=== PATIENT | male | born 1935 | race Caucasian/White ===

== ENCOUNTER 2021-12-23 14:48 | Observation (INO) | payer MEDICARE, BC ==
[2021-12-23 15:46] LABS: #Eosinphils 0.2 thou/uL (0.0-0.7); #Lymphocytes 1.5 thou/uL (1.20-3.40); #Monocytes 0.4 thou/uL (0.11-0.59); #Neutrophils 5.8 thou/uL (1.40-6.50); %Basophils 0.6 % (0.0-1.0); %Eosinophils 2.8 % (0.0-10.0); %Lymphocytes 19.1 % (21.0-51.0); %Monocytes 4.8 % (0.0-10.0); %Neutrophils 72.7 % (42.0-75.0); Hemoglobin 16.3 g/dL (14.0-18.0); Mean Corpuscular Hemoglobin 31.4 pg (27.0-31.0); Mean Corpuscular Volume 92.4 fL (78.0-98.0); Mean Platelet Volume 7.1 fL (7.4-10.4); Platelet Count 265 thou/uL (130-400); RBC Distribution Width 11.9 % (11.5-14.5); Red Blood Cell (RBC) Count 5.19 mill/uL (4.70-6.10); White Blood Cell (WBC) Count 7.9 thou/uL (4.8-10.8)
[2021-12-23 16:06] LABS: ALT (SGPT) 18 U/L (8-55); AST (SGOT) 17 U/L (5-34); Alkaline Phosphatase 101 U/L (40-110); Anion Gap 14 mmol/L (10-20); BUN (Urea Nitrogen) 14 mg/dL (8.4-25.7); Bilirubin, Total 0.8 mg/dL (0.2-1.2); Calc. Creatinine Clearance 0 mL/min (70-130); Calcium 9.7 mg/dL (7.8-10.44); Carbon Dioxide 30 mmol/L (23-31); Chloride 97 mmol/L (98-107); Globulin 3.2 g/dL (2.4-3.5); Glucose 367 mg/dL (83-110); Potassium 3.5 mmol/L (3.5-5.1); Protein, Total 7.2 g/dL (5.8-8.1); Sodium 137 mmol/L (136-145)
[2021-12-23] MEDS ORDERED: Aspirin Chewable 81 MG TAB ONE (16:38)
[2021-12-23] MEDS ORDERED: Nitroglycerin 2% Ointment 1 INCH/1 GM Packet ONE (16:38)
[2021-12-23 17:48] LABS: SARS-CoV-2 NAA Rapid Test Not Detected (NotDetected)
[2021-12-23] MEDS ORDERED: Ondansetron ODT 4 MG TAB PO PRN (18:09)
[2021-12-23] MEDS ORDERED: Acetaminophen 325 MG TAB PO PRN (18:09)
[2021-12-23] MEDS ORDERED: Nitroglycerin 0.4 MG TAB (25 Tab Bottle) SL PRN (18:11)
[2021-12-23] MEDS ORDERED: hydrALAZINE 20 MG/ML VIAL SLOW IVP PRN (18:14)
[2021-12-23] MEDS ORDERED: Electrolyte Replacement Protocol 1 EACH FS SCH (18:15)
[2021-12-23] MEDS ORDERED: Enoxaparin Sodium 40 MG/0.4 ML SYRINGE SC SCH (19:00)
[2021-12-23] MEDS ORDERED: Atorvastatin Calcium 40 MG TAB PO SCH (21:00)
[2021-12-23 21:05] VITALS: BMI 29.4
[2021-12-23] MEDS: Nitroglycerin 2% Ointment 1 INCH/1 GM Packet TOP SCH (22:49)
[2021-12-24 04:50] LABS: Hemoglobin A1c 11.5 % (4.0-6.0)
[2021-12-24 05:01] LABS: Cardiac Risk 3.7 (Less than 4.5); Cholesterol 123 mg/dl (< 200 Desired); HDL Cholesterol 33 mg/dL (>60 Neg Risk); LDL Cholesterol, Calculated 71 mg/dL; Triglycerides 93 mg/dL (Less than 150)
[2021-12-24] MEDS: Nitroglycerin 2% Ointment 1 INCH/1 GM Packet TOP SCH (05:09)
[2021-12-24] MEDS ORDERED: Magnesium 2 GM/50 ML(in water) 2 GM in Premix Bag 1 BAG IVPB SCH (05:30)
[2021-12-24] MEDS ORDERED: Dextrose 5% in Water 1,000 ML IV PRN (08:33)
[2021-12-24] MEDS ORDERED: Dextrose 50% Abboject 50 ML SYRINGE SLOW IVP PRN (08:33)
[2021-12-24] MEDS ORDERED: Insulin Regular 300 UNITS/3 ML VIAL SC PRN ×2 (08:33)
[2021-12-24] MEDS ORDERED: Enoxaparin Sodium 80 MG/0.8 ML SYRINGE SC SCH (09:00)
[2021-12-24] MEDS ORDERED: Enoxaparin Sodium 40 MG/0.4 ML SYRINGE SC SCH (09:00)
[2021-12-24] MEDS ORDERED: Lantus 1000 UNITS/10 ML VIAL SC SCH ×2 (09:00→21:00)
[2021-12-24] MEDS ORDERED: [UNRECOGNIZED DRUG - OTHER] PO SCH (09:00)
[2021-12-24] MEDS ORDERED: Valsartan 80 MG TAB PO SCH ×2 (09:00→21:00)
[2021-12-24] MEDS ORDERED: Hydrochlorothiazide 25 MG TAB PO SCH (09:00)
[2021-12-24] MEDS ORDERED: HYDROCHLOROTHIAZIDE PO SCH ×2 (09:00)
[2021-12-24] MEDS ORDERED: VALSARTAN PO SCH ×2 (09:00)
[2021-12-24] MEDS ORDERED: Aspirin Chewable 81 MG TAB PO SCH (09:00)
[2021-12-24] MEDS ORDERED: Amlodipine 5 MG TAB PO SCH ×3 (09:00→10:00)
[2021-12-24] MEDS ORDERED: Enoxaparin Sodium 100 MG/ML SYRINGE SC SCH (09:00)
[2021-12-24] MEDS ORDERED: Montelukast Sodium 10 mg Tablet PO SCH (09:00)
[2021-12-24] MEDS ORDERED: Regadenoson 0.4 MG/5 ML SYRINGE ONE (09:32)
[2021-12-24 15:58] VITALS: BP 133/71; TEMP 97.7
[2021-12-25] MEDS ORDERED: Amlodipine 5 MG TAB PO SCH (09:00)
== END 2021-12-24 16:36 | disposition home or self-care (01) ==
LOC: ERS 14:48 → 2SW 17:23
PROVIDERS: ADMIT Internal Medicine; ATTEND Physician Assistant
DX: R07.89 Other chest pain (principal); R06.09 Other forms of dyspnea; R10.13 Epigastric pain; I10 Essential (primary) hypertension; E78.5 Hyperlipidemia, unspecified; I48.0 Paroxysmal atrial fibrillation; I45.10 Unspecified right bundle-branch block; E11.65 Type 2 diabetes mellitus with hyperglycemia; Z79.01 Long term (current) use of anticoagulants; Z79.899 Other long term (current) drug therapy; Z88.5 Allergy status to narcotic agent; Z95.0 Presence of cardiac pacemaker; Z20.822 Contact with and (suspected) exposure to COVID-19
CPT/HCPCS: 71045; 78452; 80053; 80061; 82962; 83036; 83690; 83735; 84484 ×2; 85025; 93005; 93017; 94760; 96365; 99285; A9500; G0378 ×3; U0002; 36415; 36416; J1650; J1815; J2785; J3475

== ENCOUNTER 2023-02-02 08:44 | Inpatient (IN) | payer BC, MEDICARE ==
[2023-02-02 09:35] LABS: #Eosinphils 0.1 thou/uL (0.0-0.7); #Lymphocytes 0.7 thou/uL (1.20-3.40); #Monocytes 0.5 thou/uL (0.11-0.59); #Neutrophils 8.5 thou/uL (1.40-6.50); %Basophils 0.3 % (0.0-1.0); %Eosinophils 1.1 % (0.0-10.0); %Lymphocytes 7.3 % (21.0-51.0); %Neutrophils 86.2 % (42.0-75.0); Hemoglobin 11.3 g/dL (14.0-18.0); Mean Corpuscular HGB CONC 32.8 g/dL (32.0-36.0); Mean Corpuscular Hemoglobin 30.3 pg (27.0-31.0); Mean Corpuscular Volume 92.3 fl (78.0-98.0); Mean Platelet Volume 5.6 fL (7.4-10.4); Platelet Count 529 10x3/uL (130-400); RBC Distribution Width 13.1 % (11.5-14.5); Red Blood Cell (RBC) Count 3.72 mill/uL (4.70-6.10); White Blood Cell (WBC) Count 9.8 10x3/uL (4.8-10.8)
[2023-02-02 09:45] LABS: INR-International Normal Ratio 1.3; Prothrombin Time 16.8 sec (12.0-14.7)
[2023-02-02 09:46] LABS: PTT 37.7 sec (22.9-36.1)
[2023-02-02 09:55] LABS: ALT (SGPT) 12 U/L (8-55); AST (SGOT) 11 U/L (5-34); Albumin 3.3 g/dL (3.4-4.8); Alkaline Phosphatase 68 U/L (40-110); Anion Gap 11 mmol/L (10-20); BUN (Urea Nitrogen) 11 mg/dL (8.4-25.7); Bilirubin, Total 1.1 mg/dL (0.2-1.2); Calc. Creatinine Clearance 0 mL/min (70-130); Calcium 8.7 mg/dL (7.8-10.44); Carbon Dioxide 30 mmol/L (23-31); Chloride 95 mmol/L (98-107); Estimated GFR 87; Glucose 144 mg/dL (83-110); Potassium 3.6 mmol/L (3.5-5.1); Protein, Total 6.3 g/dL (5.8-8.1); Sodium 132 mmol/L (136-145)
[2023-02-02 10:15] LABS: Bilirubin Negative (Negative); Blood, Urine Negative (Negative); Clarity Clear (Clear); Glucose, Urine (Dipstick) 30 mg/dL (Negative); Ketone, Urine Trace mg/dL (Negative); Leukocyte Negative Leu/uL (Negative); Nitrite Negative (Negative); Protein, Urine (Dipstick) Negative (Neg-Trace); Specific Gravity, Urine 1.019 (1.002-1.036); pH, Urine 5.5 (5.0-9.0)
[2023-02-02] MEDS ORDERED: Iopamidol-370 76% 500 ML MDV (1 ML CHARGE) ONE (12:37)
[2023-02-02] MEDS ORDERED: cefTRIAXone (ROCEPHIN) 2 GM VIAL ONE (13:01)
[2023-02-02] MEDS ORDERED: metroNIDAZOLE 500 MG/100 ML BAG ONE (13:01)
[2023-02-02] MEDS ORDERED: Ondansetron PF 4 MG/2 ML Vial IVP PRN (13:47)
[2023-02-02] MEDS ORDERED: Senokot S 8.6-50 MG TAB PO PRN (13:47)
[2023-02-02] MEDS ORDERED: Acetaminophen 325 MG TAB PO PRN (13:47)
[2023-02-02] MEDS ORDERED: Calcium Carbonate 500 MG ChewTAB PO PRN (13:47)
[2023-02-02] MEDS ORDERED: Dextrose 50% Abboject 50 ML SYRINGE SLOW IVP PRN (13:51)
[2023-02-02] MEDS ORDERED: Dextrose 5% in Water 1,000 ML IV PRN (13:51)
[2023-02-02] MEDS ORDERED: HumaLOG 300 UNITS/3 ML VIAL SC PRN ×2 (13:51)
[2023-02-02] MEDS ORDERED: Pantoprazole 40 MG VIAL IVP SCH (14:00)
[2023-02-02] MEDS ORDERED: Piperacillin/Tazobactam 3.375 GM in Sodium Chloride 0.9% 100 ML IVPB SCH (15:00)
[2023-02-02 16:35] LABS: Troponin I Less than 0.010 ng/mL (< 0.028)
[2023-02-02] MEDS: HYDROcodone/Acetaminophen 5/325 mg Tablet PO PRN ×2 (16:43→21:00)
[2023-02-02] MEDS: Sodium Chloride 0.9% 1,000 ML IV SCH (16:46)
[2023-02-02 17:05] VITALS: BMI 27.6
[2023-02-02] MEDS: Pantoprazole 40 MG VIAL IVP SCH (21:00)
[2023-02-03] MEDS: Piperacillin/Tazobactam 3.375 GM in Sodium Chloride 0.9% 100 ML IVPB SCH ×4 (00:05→23:52)
[2023-02-03] MEDS: HYDROcodone/Acetaminophen 5/325 mg Tablet PO PRN ×4 (01:49→21:03)
[2023-02-03] MEDS: Sodium Chloride 0.9% 1,000 ML IV SCH ×2 (05:40→16:15)
[2023-02-03 07:00] LABS: #Eosinphils 0.2 thou/uL (0.0-0.7); #Lymphocytes 0.8 thou/uL (1.20-3.40); #Monocytes 0.6 thou/uL (0.11-0.59); #Neutrophils 8.7 thou/uL (1.40-6.50); %Basophils 0.5 % (0.0-1.0); %Eosinophils 1.7 % (0.0-10.0); %Lymphocytes 7.9 % (21.0-51.0); %Monocytes 5.7 % (0.0-10.0); %Neutrophils 84.3 % (42.0-75.0); Hemoglobin 10.7 g/dL (14.0-18.0); Mean Corpuscular HGB CONC 33.3 g/dL (32.0-36.0); Mean Corpuscular Hemoglobin 30.8 pg (27.0-31.0); Mean Corpuscular Volume 92.4 fl (78.0-98.0); Platelet Count 470 10x3/uL (130-400); Red Blood Cell (RBC) Count 3.46 mill/uL (4.70-6.10); White Blood Cell (WBC) Count 10.3 10x3/uL (4.8-10.8)
[2023-02-03 07:12] LABS: Iron 18 ug/dL (65-175); Iron Binding Capacity, Total 169 mcg/dL (261-462)
[2023-02-03 07:13] LABS: ALT (SGPT) 8 U/L (8-55); AST (SGOT) 8 U/L (5-34); Albumin 2.9 g/dL (3.4-4.8); Alkaline Phosphatase 61 U/L (40-110); Anion Gap 11 mmol/L (10-20); BUN (Urea Nitrogen) 7 mg/dL (8.4-25.7); Bilirubin, Total 0.8 mg/dL (0.2-1.2); Calc. Creatinine Clearance 103 mL/min (70-130); Carbon Dioxide 28 mmol/L (23-31); Chloride 100 mmol/L (98-107); Estimated GFR 90; Globulin 2.7 g/dL (2.4-3.5); Glucose 133 mg/dL (83-110); Iron 23 ug/dL (65-175); Iron Binding Capacity, Total 175 mcg/dL (261-462); Potassium 3.2 mmol/L (3.5-5.1); Protein, Total 5.6 g/dL (5.8-8.1); Sodium 136 mmol/L (136-145)
[2023-02-03] MEDS: Polyethylene Glycol 3350 17 GM Packet PO SCH (08:31)
[2023-02-03] MEDS: Pantoprazole 40 MG VIAL IVP SCH ×2 (08:31→21:01)
[2023-02-03] MEDS: Potassium Chloride 20 MEQ TAB PO SCH ×2 (09:51→12:25)
[2023-02-03] MEDS: Atorvastatin Calcium 10 MG TAB PO SCH (09:51)
[2023-02-03] MEDS: Amlodipine 5 MG TAB PO SCH ×2 (09:52→21:00)
[2023-02-03] MEDS: Tamsulosin HCl 0.4 MG CAP PO SCH (09:52)
[2023-02-03] MEDS ORDERED: Potassium Chloride 20 MEQ TAB PO SCH ×2 (17:00)
[2023-02-04] MEDS: HYDROcodone/Acetaminophen 5/325 mg Tablet PO PRN (01:02)
[2023-02-04] MEDS: Sodium Chloride 0.9% 1,000 ML IV SCH (07:10)
[2023-02-04 08:34] LABS: #Eosinphils 0.3 thou/uL (0.0-0.7); #Lymphocytes 0.7 thou/uL (1.20-3.40); #Monocytes 0.5 thou/uL (0.11-0.59); #Neutrophils 7.4 thou/uL (1.40-6.50); %Basophils 0.4 % (0.0-1.0); %Eosinophils 3.9 % (0.0-10.0); %Lymphocytes 8.1 % (21.0-51.0); %Monocytes 5.1 % (0.0-10.0); %Neutrophils 82.5 % (42.0-75.0); Hemoglobin 10.7 g/dL (14.0-18.0); Mean Corpuscular HGB CONC 31.9 g/dL (32.0-36.0); Mean Corpuscular Hemoglobin 29.8 pg (27.0-31.0); Mean Corpuscular Volume 93.5 fl (78.0-98.0); Platelet Count 485 10x3/uL (130-400); Red Blood Cell (RBC) Count 3.58 mill/uL (4.70-6.10)
[2023-02-04 08:58] LABS: Anion Gap 11 mmol/L (10-20); BUN (Urea Nitrogen) 6 mg/dL (8.4-25.7); Calc. Creatinine Clearance 110 mL/min (70-130); Calcium 8.3 mg/dL (7.8-10.44); Carbon Dioxide 30 mmol/L (23-31); Chloride 101 mmol/L (98-107); Estimated GFR 91; Glucose 128 mg/dL (83-110); Magnesium 1.9 mg/dL (1.6-2.6); Potassium 3.6 mmol/L (3.5-5.1); Sodium 138 mmol/L (136-145)
[2023-02-04] MEDS: Tamsulosin HCl 0.4 MG CAP PO SCH (09:17)
[2023-02-04] MEDS: Polyethylene Glycol 3350 17 GM Packet PO SCH (09:17)
[2023-02-04] MEDS: Piperacillin/Tazobactam 3.375 GM in Sodium Chloride 0.9% 100 ML IVPB SCH ×3 (09:17→23:01)
[2023-02-04] MEDS: Atorvastatin Calcium 10 MG TAB PO SCH (09:17)
[2023-02-04] MEDS: Pantoprazole 40 MG VIAL IVP SCH ×2 (09:17→20:35)
[2023-02-04] MEDS: Amlodipine 5 MG TAB PO SCH ×2 (09:17→20:34)
[2023-02-05 07:04] LABS: Hemoglobin 10.2 g/dL (14.0-18.0)
[2023-02-05 08:45] LABS: Lactic Acid 0.9 mmol/L (0.5-2.2)
[2023-02-05] MEDS: Tamsulosin HCl 0.4 MG CAP PO SCH (08:47)
[2023-02-05] MEDS: Piperacillin/Tazobactam 3.375 GM in Sodium Chloride 0.9% 100 ML IVPB SCH ×3 (08:47→23:39)
[2023-02-05] MEDS: Atorvastatin Calcium 10 MG TAB PO SCH (08:47)
[2023-02-05] MEDS: Pantoprazole 40 MG VIAL IVP SCH ×2 (08:48→20:41)
[2023-02-05] MEDS: Amlodipine 5 MG TAB PO SCH ×2 (08:48→20:43)
[2023-02-05] MEDS: Polyethylene Glycol 3350 17 GM Packet PO SCH (08:49)
[2023-02-06] MEDS: HYDROcodone/Acetaminophen 5/325 mg Tablet PO PRN (02:32)
[2023-02-06] MEDS: Tamsulosin HCl 0.4 MG CAP PO SCH (08:31)
[2023-02-06] MEDS: Piperacillin/Tazobactam 3.375 GM in Sodium Chloride 0.9% 100 ML IVPB SCH (08:35)
[2023-02-06] MEDS: Pantoprazole 40 MG VIAL IVP SCH ×2 (08:36→21:37)
[2023-02-06] MEDS: Polyethylene Glycol 3350 17 GM Packet PO SCH (08:36)
[2023-02-06] MEDS: Amlodipine 5 MG TAB PO SCH ×2 (08:36→21:36)
[2023-02-06] MEDS: Atorvastatin Calcium 10 MG TAB PO SCH (08:36)
[2023-02-06] MEDS: Simethicone Chewable 80 MG TAB PO PRN (08:48)
[2023-02-06] MEDS ORDERED: traMADol HCl 50 MG TAB PO PRN (09:32)
[2023-02-06] MEDS ORDERED: Sodium Chloride 0.9% 1,000 ML IV SCH (09:45)
[2023-02-06] MEDS: metroNIDAZOLE 500 MG TAB PO SCH ×2 (15:45→21:36)
[2023-02-06] MEDS ORDERED: diphenhydrAMINE 25 MG CAP PO SCH (21:00)
[2023-02-06] MEDS: Ciprofloxacin 500 MG TAB PO SCH (21:36)
[2023-02-06] MEDS: Melatonin 3 MG TAB PO SCH (21:36)
[2023-02-06] MEDS: Apixaban 5 MG TAB PO SCH (21:37)
[2023-02-07] MEDS: Valsartan 80 MG TAB PO SCH (08:08)
[2023-02-07] MEDS: Pantoprazole 40 MG VIAL IVP SCH ×2 (08:09→20:56)
[2023-02-07] MEDS: metroNIDAZOLE 500 MG TAB PO SCH ×3 (08:11→20:55)
[2023-02-07] MEDS: Amlodipine 5 MG TAB PO SCH ×2 (08:13→20:52)
[2023-02-07] MEDS: Apixaban 5 MG TAB PO SCH ×2 (08:15→20:54)
[2023-02-07] MEDS: Hydrochlorothiazide 25 MG TAB PO SCH (08:15)
[2023-02-07] MEDS: Tamsulosin HCl 0.4 MG CAP PO SCH (08:16)
[2023-02-07] MEDS: Ciprofloxacin 500 MG TAB PO SCH ×2 (08:16→20:54)
[2023-02-07] MEDS: Atorvastatin Calcium 10 MG TAB PO SCH (08:17)
[2023-02-07 09:59] LABS: Hemoglobin 10.1 g/dL (14.0-18.0)
[2023-02-07] MEDS: Simethicone Chewable 80 MG TAB PO PRN (10:41)
[2023-02-07] MEDS ORDERED: Loperamide HCl 2 MG CAP PO SCH (12:00)
[2023-02-07] MEDS: Melatonin 3 MG TAB PO SCH (20:54)
[2023-02-07] MEDS ORDERED: diphenhydrAMINE 25 MG CAP PO PRN (21:00)
[2023-02-08] MEDS: Atorvastatin Calcium 10 MG TAB PO SCH (09:28)
[2023-02-08] MEDS: Amlodipine 5 MG TAB PO SCH (09:28)
[2023-02-08] MEDS: Tamsulosin HCl 0.4 MG CAP PO SCH (09:28)
[2023-02-08] MEDS: Ciprofloxacin 500 MG TAB PO SCH (09:28)
[2023-02-08] MEDS: Hydrochlorothiazide 25 MG TAB PO SCH (09:29)
[2023-02-08] MEDS: Apixaban 5 MG TAB PO SCH (09:31)
[2023-02-08] MEDS: metroNIDAZOLE 500 MG TAB PO SCH (09:31)
[2023-02-08] MEDS: Valsartan 80 MG TAB PO SCH (09:31)
[2023-02-08] MEDS: Pantoprazole 40 MG VIAL IVP SCH (09:31)
[2023-02-08] MEDS ORDERED: Loperamide HCl 2 MG CAP PO SCH (11:30)
[2023-02-08 12:36] VITALS: BP 151/72; TEMP 97.6
== END 2023-02-08 12:26 | disposition home or self-care (01) | DRG 392 ==
LOC: ERS 08:44 → SUATTDRO 08:44 → ERHOLD 13:07 → T4-B 15:13 → OBSVTOIN 02-03 13:03
PROVIDERS: ADMIT Hospitalist; ATTEND Hospitalist
DX: K52.9 Noninfective gastroenteritis and colitis, unspecified (principal); R04.2 Hemoptysis; K86.89 Other specified diseases of pancreas; R19.09 Other intra-abdominal and pelvic swelling, mass and lump; I48.91 Unspecified atrial fibrillation; I10 Essential (primary) hypertension; G47.33 Obstructive sleep apnea (adult) (pediatric); N40.0 Benign prostatic hyperplasia without lower urinary tract symptoms; E78.5 Hyperlipidemia, unspecified; Z96.652 Presence of left artificial knee joint; D64.9 Anemia, unspecified; K59.00 Constipation, unspecified; D63.8 Anemia in other chronic diseases classified elsewhere; Z99.89 Dependence on other enabling machines and devices; Z95.0 Presence of cardiac pacemaker; Z79.01 Long term (current) use of anticoagulants; Z88.5 Allergy status to narcotic agent; Z79.899 Other long term (current) drug therapy; Z79.84 Long term (current) use of oral hypoglycemic drugs
CPT/HCPCS: 36415; 36416; 71045; 71275; 74177; 80048; 80053; 81003; 82274; 82607; 82728; 83540; 83550; 83605; 83735; 84484; 85014; 85018; 85025; 85610; 85730; 86140; 86301; 87086; 87324; 87449; 93005; 93970; 96365; 96367; 96375; 96376; C9113; G0378; J0696; J2543; J3490; J7050; Q9967

== ENCOUNTER 2023-03-14 08:16 | Day surgery (SDC) | payer MEDICARE ==
[2023-03-11 10:20] VITALS: BMI 26.9
[2023-03-14] MEDS ORDERED: PROPOFOL 200 MG/20 ML VIAL ONE (09:48)
[2023-03-14] MEDS ORDERED: Lidocaine 1% PF 5 ML VIAL ONE (09:48)
== END 2023-03-14 11:11 | disposition home or self-care (01) ==
LOC: SDC 08:16
PROVIDERS: ATTEND Internal Medicine Gastroenterology
PROC: 0DJ08ZZ Inspection of Upper Intestinal Tract, Via Natural or Artificial Opening Endoscopic (ICD-10-PCS; principal; 2023-03-14)
PROC: 0DBK8ZX Excision of Ascending Colon, Via Natural or Artificial Opening Endoscopic, Diagnostic (ICD-10-PCS; 2023-03-14)
DX: K63.5 Polyp of colon (principal); K57.30 Diverticulosis of large intestine without perforation or abscess without bleeding; D50.9 Iron deficiency anemia, unspecified; K68.9 Other disorders of retroperitoneum; K21.9 Gastro-esophageal reflux disease without esophagitis; M19.90 Unspecified osteoarthritis, unspecified site; I10 Essential (primary) hypertension; E78.00 Pure hypercholesterolemia, unspecified; Z85.46 Personal history of malignant neoplasm of prostate; Z79.01 Long term (current) use of anticoagulants; Z79.899 Other long term (current) drug therapy; Z88.5 Allergy status to narcotic agent; Z91.048 Other nonmedicinal substance allergy status; Z95.0 Presence of cardiac pacemaker
CPT/HCPCS: 88305; J2704

== ENCOUNTER 2023-09-07 08:27 | Outpatient (CLI) | payer MEDICARE | END 2023-09-07 08:28 | disposition home or self-care (01) | LOC: CT 08:27 | PROVIDERS: ATTEND Nurse Practitioner Family | DX: I77.89 Other specified disorders of arteries and arterioles (principal); I77.810 Thoracic aortic ectasia; K80.20 Calculus of gallbladder without cholecystitis without obstruction; K76.89 Other specified diseases of liver; I31.39 Other pericardial effusion (noninflammatory); J98.4 Other disorders of lung; J90 Pleural effusion, not elsewhere classified | CPT/HCPCS: 71275; 82565 ==